=== PATIENT | male | born 1970 | race African-American/Black ===

== ENCOUNTER 2019-08-10 10:12 | Inpatient (IN) | payer OTHER ==
[~2019-08-10] VITALS: Ht 182.9 cm; Wt 70.8 kg
[2019-08-10 14:10] LABS: BASOPHILS % 0.5 % (0.0-2.0); EOSINOPHILS % 0.2 % (0.0-5.0); HEMATOCRIT. 48.7 % (42.0-52.0); HEMOGLOBIN. 15.9 g/dL (14.0-18.0); MEAN CORPUSCULAR HEMOGLOBIN 30.9 pg (28.0-32.0); MEAN CORPUSCULAR VOLUME 94.5 fL (80.0-94.0); MEAN PLATELET VOLUME 7.1 fl (7.4-10.4); MONOCYTES % 5.1 % (2.0-8.0); NEUTROPHILS % 75.2 % (40.0-76.0); PLATELET 343 x1000/uL (130-400); RED BLOOD CELL COUNT 5.15 mill/uL (4.7-6.1); RED CELL DISTRIBUTION WIDTH 14.3 % (11.6-14.6)
[2019-08-10 14:18] LABS: CHLORIDE 106 mEq/L (98-107)
[2019-08-10] MEDS ORDERED: ASPIRIN 81MG TABLET PO ONE (15:00)
[2019-08-10 21:00] VITALS: BP 102/75
[2019-08-10] MEDS ORDERED: ACETAMINOPHEN 325MG TABLET PO PRN (22:30)
[2019-08-10] MEDS ORDERED: INFLUENZA VIRUS VACCINE(AFLURIA) 0.5ML SYR IM ONE (22:30)
[2019-08-10] MEDS: TEMAZEPAM 15MG CAPSULE PO PRN (23:09)
[2019-08-11] VITALS: BP 111/66
[2019-08-11 00:30] LABS: *AMPHETAMINES SCREEN URINE NEGATIVE (NEGATIVE); *BARBITURATES SCREEN URINE NEGATIVE (NEGATIVE); CANNABINOID URINE SCREEN PRESUMTIVE POSITIVE (NEGATIVE)
[2019-08-11 00:31] LABS: *BENZODIAZEPINES SCREEN URINE NEGATIVE (NEGATIVE); *COCAINE SCREEN URINE NEGATIVE (NEGATIVE); METHADONE URINE SCREEN NEGATIVE (NEGATIVE); OPIATES URINE SCREEN NEGATIVE (NEGATIVE)
[2019-08-11 00:32] LABS: PHENCYCLIDINE URINE SCREEN NEGATIVE (NEGATIVE)
[2019-08-11 04:00] VITALS: BP 104/73
[2019-08-11] MEDS ORDERED: PANTOPRAZOLE 40MG DR TABLET PO SCH (06:45)
[2019-08-11 07:40] LABS: CHLORIDE 103 mEq/L (98-107)
[2019-08-11 07:52] LABS: HDL CHOLESTEROL 81 mg/dL (40-59)
[2019-08-11 07:54] LABS: LDL CHOLESTEROL 99 mg/dL (5-100)
[2019-08-11 07:55] LABS: CREATINE KINASE 198 IU/L (39-308)
[2019-08-11 07:58] LABS: CREATINE KINASE MB FRACTION 1.1 ng/mL (0.5-3.6)
[2019-08-11 07:59] LABS: BASOPHILS % 0.7 % (0.0-2.0); EOSINOPHILS % 2.2 % (0.0-5.0); HEMATOCRIT. 43.3 % (42.0-52.0); HEMOGLOBIN. 14.7 g/dL (14.0-18.0); LYMPHOCYTES % 37.8 % (20.0-50.0); MEAN CORPUSCULAR HEMOGLOBIN 31.6 pg (28.0-32.0); MEAN CORPUSCULAR VOLUME 93.2 fL (80.0-94.0); MEAN PLATELET VOLUME 7.5 fl (7.4-10.4); MONOCYTES % 11.6 % (2.0-8.0); NEUTROPHILS % 47.7 % (40.0-76.0); PLATELET 305 x1000/uL (130-400); RED BLOOD CELL COUNT 4.65 mill/uL (4.7-6.1)
[2019-08-11 08:00] VITALS: BP 106/59
[2019-08-11] MEDS: ENOXAPARIN 40MG/0.4ML SYR SUBCUT SCH (08:20)
[2019-08-11] MEDS: ASPIRIN 81MG TABLET PO SCH (08:20)
[2019-08-11 12:00] VITALS: BP 115/94
[2019-08-11] MEDS ORDERED: DIPHENHYDRAMINE 50MG/ML VIAL IV PRN (13:45)
[2019-08-11] MEDS ORDERED: LORAZEPAM 2MG/ML CPJ IV PRN (13:45)
[2019-08-11] MEDS ORDERED: HYDRALAZINE 20MG/ML VIAL IV PRN (13:45)
[2019-08-11] MEDS ORDERED: GUAIFENESIN 200MG/10ML SUGAR FREE UDC PO PRN (13:45)
[2019-08-11] MEDS ORDERED: HYDROCODONE/ACETAMINOPHEN 5/325MG TABLET PO PRN (13:45)
[2019-08-11] MEDS ORDERED: IPRATROPIUM/ALBUTEROL 0.5-3(2.5)MG/3ML NEB HHN PRN (14:00)
[2019-08-11 16:00] VITALS: BP 112/76
[2019-08-11] MEDS: TEMAZEPAM 15MG CAPSULE PO PRN (18:17)
[2019-08-11 19:08] LABS: CREATINE KINASE 217 IU/L (39-308); T4 FREE 1.01 ng/dL (0.76-1.46)
[2019-08-11 19:09] LABS: CREATINE KINASE MB FRACTION < 1.0 ng/mL (0.5-3.6)
[2019-08-11 20:00] VITALS: BP 116/66
[2019-08-11] MEDS ORDERED: LACTULOSE 20G/30ML UDC PO PRN (21:00)
[2019-08-12] VITALS: BP 118/78
[2019-08-12 00:31] LABS: CREATINE KINASE 198 IU/L (39-308); CREATINE KINASE MB FRACTION 1.1 ng/mL (0.5-3.6)
[2019-08-12 04:00] VITALS: BP 114/61
[2019-08-12 07:03] LABS: BASOPHILS % 0.6 % (0.0-2.0); EOSINOPHILS % 3.1 % (0.0-5.0); HEMATOCRIT. 42.5 % (42.0-52.0); HEMOGLOBIN. 14.5 g/dL (14.0-18.0); LYMPHOCYTES % 44.6 % (20.0-50.0); MEAN CORPUSCULAR HEMOGLOBIN 31.9 pg (28.0-32.0); MEAN CORPUSCULAR VOLUME 93.4 fL (80.0-94.0); MEAN PLATELET VOLUME 7.2 fl (7.4-10.4); MONOCYTES % 13.1 % (2.0-8.0); NEUTROPHILS % 38.6 % (40.0-76.0); PLATELET 306 x1000/uL (130-400); RED BLOOD CELL COUNT 4.55 mill/uL (4.7-6.1); RED CELL DISTRIBUTION WIDTH 13.7 % (11.6-14.6)
[2019-08-12 08:00] VITALS: BP 114/66
[2019-08-12 08:41] LABS: CHLORIDE 104 mEq/L (98-107)
[2019-08-12] MEDS: ENOXAPARIN 40MG/0.4ML SYR SUBCUT SCH (08:54)
[2019-08-12] MEDS: ASPIRIN 81MG TABLET PO SCH (08:54)
[2019-08-12] MEDS ORDERED: REGADENOSON 0.4 MG/5 ML IV NR (11:15)
[2019-08-12 12:00] VITALS: BP 112/76
[2019-08-12] MEDS ORDERED: REGADENOSON 0.4 MG/5 ML IV ONE (12:33)
[2019-08-12] MEDS ORDERED: METOPROLOL TARTRATE 25MG TABLET PO SCH (15:45)
[2019-08-12 16:00] VITALS: BP 111/86
[2019-08-12] MEDS ORDERED: BLOO1KIT74 TP (16:19)
[2019-08-12] MEDS ORDERED: METO25TA6 MT (16:19)
[2019-08-12] MEDS ORDERED: ASPI-1497 MT (16:19)
[2019-08-12 18:57] VITALS: BP 111/86
== END 2019-08-12 19:25 | disposition home or self-care (01) | DRG 206 ==
LOC: ER 10:12 → 5WST 16:24 → EDBEDREQ 16:39 → EDBEDREQTM 16:39 → ENRESERV 19:27 → UNDODISIN 08-12 15:20
PROVIDERS: ADMIT Internal Medicine; ATTEND Internal Medicine
DX: M94.0 Chondrocostal junction syndrome [Tietze] (principal); I49.3 Ventricular premature depolarization; F12.90 Cannabis use, unspecified, uncomplicated
CPT/HCPCS: 36415; 71045; 78452; 80048; 80053; 80061; 80305; 82550; 82553; 83735; 83880; 84439; 84443; 84484; 85025; 90686; 93005; 93017; 93306; 99285; A9500; J1650; J2785